=== PATIENT | female | born 1995 | race African-American/Black ===

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

== ENCOUNTER 2017-02-21 00:18 | Emergency (ER) | payer MEDICAID, OTHER ==
[~2017-02-21] VITALS: Ht 177.8 cm; Wt 63.0 kg
[2017-02-21 04:10] VITALS: BP 128/86
== END 2017-02-21 05:11 | disposition home or self-care (01) ==
LOC: ER 00:18
DX: R06.02 Shortness of breath (principal); J45.909 Unspecified asthma, uncomplicated
CPT/HCPCS: 71010; 81025; 99283